=== PATIENT | female | born 2000 | race Caucasian/White ===

== ENCOUNTER → 2019-09-21 | Outpatient (CLI) | payer OTHER ==
--- NOTE | 2019-09-21 14:55 | REP ---
MRI BRAIN AND POSTERIOR FOSSA WITHOUT CONTRAST: HISTORY: History of hearing loss in the left ear since November 2018. Sensorineural hearing loss unilateral left ear. TECHNIQUE: Axial and sagittal imaging planes are utilized. T1- and T2-weighted sequences include spin-echo, fast spin-echo, FLAIR, diffusion-weighted scans and 3D thin-section T2-weighted images through the posterior fossa. MRI FINDINGS: Bony calvarium is intact. Paranasal sinuses are clear, except for the left maxillary sinus where there are two small mucous retention cysts in the floor of the left maxillary sinus. No intraorbital abnormality is seen. Hardy white differentiation pattern is normal above and below the tentorium. Diffusion-weighted scans show no evidence of restricted diffusion to suggest acute ischemia or other abnormality. There is no evidence of mass, extra-axial fluid collection, or midline shift. No CP angle cistern mass is seen. Thin section images through the internal auditory canals demonstrate normal seventh and eighth nerves bilaterally in the internal auditory canals. There is no evidence of intracanalicular or extracanalicular nodule or mass. Cochlear and vestibular apparatus appear to be intact. The middle ear cavities appear to be aerated bilaterally. IMPRESSION: Negative MRI brain with thin section posterior fossa imaging. Electronically Signed by Naresh Puentes MD 09/21/2019 03:10 P
== END ==
LOC: M RAD 12:52
PROVIDERS: ATTEND Otolaryngology
DX: H90.42 Sensorineural hearing loss, unilateral, left ear, with unrestricted hearing on the contralateral side (principal)